=== PATIENT | female | born 1960 | race Caucasian/White ===

== ENCOUNTER 2025-03-04 14:32 | Emergency (ER) | payer MEDICARE, BC ==
[2025-03-04 14:40] VITALS: BP 146/78; PULSE 94
[2025-03-04] MEDS: Doxycycline 100 MG Cap PO ONE (15:31)
== END 2025-03-04 15:31 | disposition home or self-care (01) ==
LOC: JP.ED 14:32
DX: S30.861A Insect bite (nonvenomous) of abdominal wall, initial encounter (principal); I10 Essential (primary) hypertension; Z79.899 Other long term (current) drug therapy; W57.XXXA Bitten or stung by nonvenomous insect and other nonvenomous arthropods, initial encounter
CPT/HCPCS: 99282; A9270

== ENCOUNTER 2025-04-30 06:33 | Day surgery (SDC) | payer MEDICARE, BC ==
[2025-04-30] MEDS ORDERED: Midazolam 1 MG/ML 2 ML SDV ONE (06:57)
[2025-04-30] MEDS ORDERED: fentaNYL 50 MCG/ML SDV ONE (06:57)
[2025-04-30] MEDS ORDERED: Propofol 200 MG/20 ML SDV ONE (06:57)
[2025-04-30] MEDS: Lactated Ringers 1,000 ML IV SCH (07:19)
[2025-04-30 09:42] VITALS: BP 131/73; PULSE 73
== END 2025-04-30 09:50 | disposition home or self-care (01) ==
LOC: JP.SDS 06:33
PROVIDERS: ATTEND Surgery
DX: Z12.11 Encounter for screening for malignant neoplasm of colon (principal); K63.5 Polyp of colon; K57.30 Diverticulosis of large intestine without perforation or abscess without bleeding; J44.89 Other specified chronic obstructive pulmonary disease; I10 Essential (primary) hypertension
CPT/HCPCS: 00811; 45380; 88305; J2250; J2704; J3010; J7120